=== PATIENT | female | born 1985 | race Caucasian/White ===

== ENCOUNTER → 2019-09-27 11:33 | Outpatient (BNVA) | payer OTHER, SELFPAY | PROVIDERS: Family Provider Nurse Practitioner Family; PCP Nurse Practitioner Family; Visit Provider Registered Nurse | DX: Z32.01 Encounter for pregnancy test, result positive (principal) | CPT/HCPCS: 81025 ==

== ENCOUNTER → 2020-07-19 13:08 | Outpatient (BNVA) | payer OTHER, SELFPAY | PROVIDERS: Family Provider Nurse Practitioner Family; PCP Nurse Practitioner Family; Visit Provider Registered Nurse | DX: R42 Dizziness and giddiness (principal) | CPT/HCPCS: 85025 ==

== ENCOUNTER → 2020-07-21 08:23 | Outpatient (BNVA) | payer OTHER, SELFPAY | PROVIDERS: Family Provider Nurse Practitioner Family; PCP Nurse Practitioner Family; Visit Provider Registered Nurse | DX: N92.0 Excessive and frequent menstruation with regular cycle (principal) | CPT/HCPCS: 85025 ==

== ENCOUNTER → 2023-01-03 09:37 | Outpatient (BNVA) | payer OTHER, SELFPAY | PROVIDERS: PCP Nurse Practitioner Family; Visit Provider Registered Nurse | DX: E04.1 Nontoxic single thyroid nodule (principal); Z13.6 Encounter for screening for cardiovascular disorders; E53.8 Deficiency of other specified B group vitamins | CPT/HCPCS: 80053; 80061; 82607; 84443; 85025 ==

== ENCOUNTER 2023-01-13 14:23 | Outpatient (CLI) | payer OTHER, SELFPAY ==
--- NOTE | 2023-01-13 14:45 | US_ITS ---
WS: [id number] Exam: US thyroid [id number] Date/Time of Exam: 01/13/2023 3:07 PM Reason For Exam: E04.1 - Nontoxic single thyroid nodule No previous exams for comparison. Evaluation of the right thyroid lobe shows a hypoechoic solid heterogeneous nodule measuring about 1 cm at the junction of the isthmus in the medial aspect of the right lobe. There may be some calcifica tion in this nodule. There is also a second isoechoic circumscribed nodule in the central aspect of t he right lobe that also measures about a centimeter at greatest diameter. Evaluation of the left thyroid lobe shows no indication of mass or nodule. The left lobe shows a norm al echogenicity. The remaining aspects of the thyroid isthmus appear normal. The right thyroid lobe m easures 1.5 x 1.65 x 4.6 cm. The left thyroid lobe measures 4 x 1.12 x 1.56 cm. The thyroid isthmus m easures about 3 mm at maximal thickness. US/US thyroid [id number] IMPRESSION: 1. 1 cm heterogeneous solid hypoechoic nodule noted at the junction of the thyr oid isthmus and the medial aspect of the right thyroid lobe. This is an indeter minate nodule and fine-needle aspiration biopsy would be recommended for follow -up. 2. A second 1 cm nodule seen in the central portion of the right thyroid lobe i s isoechoic and circumscribed and does not have suspicious appearance and could be followed up with repeat ultrasound in 6-8 months. 3. The left thyroid lobe appears normal.
== END 2023-01-13 14:24 | disposition home or self-care (01) ==
PROVIDERS: PCP Nurse Practitioner Family; Visit Provider Registered Nurse
DX: E04.2 Nontoxic multinodular goiter (principal)
CPT/HCPCS: 76536; 80053; 80061; 82607; 84443; 85025

== ENCOUNTER 2023-02-18 07:52 | Outpatient (CLI) | payer OTHER, SELFPAY ==
--- NOTE | 2023-02-18 08:45 | US_ITS ---
WS: [id number] ULTRASOUND-GUIDED RIGHT THYROID NODULE FNA HISTORY: E04.1 - Nontoxic single thyroid nodule, RIGHT isthmus nodule. Procedure, risks, and complications were explained to the patient. Consent has been obtained. Prior imaging studies are reviewed including 01/13/2023. The skin is cleansed with ChloraPrep and anesthetized with 1% buffered lidocaine. FNA performed with 25 gauge needles. medicine technologist is present to fix slides. IMPRESSION: Uncomplicated FNA of a RIGHT isthmus thyroid nodule. Final pathology results pending.
== END 2023-02-18 07:53 | disposition home or self-care (01) ==
PROVIDERS: PCP Nurse Practitioner Family; Visit Provider Registered Nurse
DX: E04.1 Nontoxic single thyroid nodule (principal)
CPT/HCPCS: 10005; 88173

== ENCOUNTER → 2023-12-17 08:49 | Outpatient (BNVA) | payer OTHER, SELFPAY | PROVIDERS: PCP Registered Nurse; Visit Provider Registered Nurse | DX: E53.8 Deficiency of other specified B group vitamins (principal); R42 Dizziness and giddiness | CPT/HCPCS: 80053; 82607; 85025 ==

== ENCOUNTER 2023-12-18 05:29 | Day surgery (SDC) | payer OTHER, SELFPAY ==
[2023-12-18] VITALS (12 sets, daily range): BP systolic 101–141; BP diastolic 58–72; PULSE 60–86; RESP 15–18; TEMP 36.3–37.5; O2SAT 95–100; BMI 25.9
[2023-12-18] MEDS: ondansetron 2 mg/ML SDV 2 mL 4 MG IVP (05:45)
[2023-12-18 06:00] LABS: Basophils % 0.4 %; Eosinophils # 0.2 10^3/uL (0.0-0.8); Eosinophils % 1.6 %; Lymphocytes % 19.6 %; Mean Corpuscular HGB Conc 34.4 g/dL (30-55); Mean Corpuscular Hemoglobin 30.9 pg (27-33); Mean Corpuscular Volume 90.1 fl (85-98); Mean Platelet Volume 9.5 fL (7.4-10.4); Monocytes # 0.5 10^3/uL (0.2-0.9); Monocytes % 4.9 %; Neutrophils # 7.27 10^3/uL (1.8-7.7); Neutrophils % 73.3 %; Nucleated Red Blood Cells % 0 %; Platelet Count 242 10^3/cmm (157-399); Red Blood Count 4.33 10^6/uL (3.85-5.65); Red Cell Distribution Width 12.7 % (12.1-15.1); White Blood Count 9.93 10^3/uL (3.29-11.43)
--- NOTE | 2023-12-18 06:00 | CTR_ITS ---
PROCEDURE INFORMATION: Exam: CT Abdomen And Pelvis Without Contrast Exam date and time: 12/18/2023 6:05 AM Age: 38 years old Clinical indication: Nausea and vomiting; Abdominal pain; Localized; Lower; Prior surgery; Surgery date: 6+ months; Surgery type: Hysterectomy TECHNIQUE: Imaging protocol: Computed tomography of the abdomen and pelvis without contrast. Radiation optimization: All CT scans at this facility use at least one of these dose optimization techniques: automated exposure control; mA and/or kV adjustment per patient size (includes targeted exams where dose is matched to clinical indication); or iterative reconstruction. COMPARISON: No relevant prior studies available. RADIATION DOSE METRICS: Total DLP (mGy-cm): 748.13 FINDINGS: Liver: Normal. No mass. Gallbladder and bile ducts: Normal. No calcified stones. No ductal dilation. Pancreas: Normal. No ductal dilation. Spleen: Small splenic cyst. Adrenal glands: Normal. No mass. Kidneys and ureters: Nonobstructing calculus lower pole right kidney. Stomach and bowel: Unremarkable. No obstruction. No mucosal thickening. Appendix: There is a small appendicolith at the appendiceal orifice with a 2nd appendicolith near the appendiceal tip. The appendix itself is slightly prominent and borderline in size at 8 mm. There is minimal periappendiceal stranding. Intraperitoneal space: Unremarkable. No free air. No significant fluid collection. Vasculature: Unremarkable. No abdominal aortic aneurysm. Lymph nodes: Unremarkable. No enlarged lymph nodes. Urinary bladder: Unremarkable as visualized. Reproductive: Unremarkable as visualized. Bones/joints: Unremarkable. No acute fracture. Soft tissues: Unremarkable. CT/CT abdomen pelvis wo con [id number] IMPRESSION: Appendiceal findings which could represent very early appendicitis. Correlate clinically.
--- NOTE | 2023-12-18 06:00 | W.ED.ABDPA2 ---
HPI - Abdominal Pain General: Chief Complaint: Abdominal Pain Stated Complaint: Abd pain Time Seen by Provider: 12/18/23 05:39 Source: patient Mode of arrival: ambulatory History of Present Illness: 38-year-old female presents to the emergency room with complaints of abdominal pain. She started having abdominal pain last evening had several episodes of diarrhea vomited around midnight and then again this morning after arriving here. No hematochezia melena hematemesis or coffee-ground emesis. She has not run a fever at all she denies any dysuria urgency or frequency. She has not previously had episodes like this. She has previously had a hysterectomy no other abdominal surgeries. No history of kidney stones. Pain is very vague she refers to it at and just to the left of the midline extending from the epigastric area all the way down to the suprapubic area. MD elicited complaint: abdominal pain Onset (ago): hour(s) Pain Consistency: constant Location: Diffuse Quality: cramping Exacerbating factors: nothing Relieving factors: nothing Associated Symptoms: Reports anorexia, change in stool character, GI cramping, diarrhea, nausea, poor appetite and vomiting; Denies belching, bloating, change in bowel habits, chills, coffee ground emesis, constipation, dyspepsia, dysuria, excessive flatus, fever(s), heartburn, hematochezia, hematuria, hematemesis, fecal incontinence, loose stools, melena and syncope Review of Systems Const: Denies: fever(s) or chills Card: Denies: chest pain or syncope Resp: Denies: dyspnea GI: Reports: nausea, vomiting, diarrhea, GI cramping and change in stool character; Denies: abdominal pain, hematemesis, coffee ground emesis, heartburn, constipation, bloating, belching, excessive flatus, fecal incontinence, change in bowel habits, hematochezia or melena : Denies: dysuria, urinary frequency, urinary urgency or hematuria Musc: Denies: neck pain or back pain Skin/Breast: Denies: rash PFSH ED PFSH: Medical History (Updated 12/18/23 @ 06:16 by Gary Singh DO) Right thyroid nodule Menorrhagia Surgical History (Updated 12/18/23 @ 06:16 by Gary Singh DO) History of partial hysterectomy Social History Smoking and tobacco/nicotine status: never used tobacco/nicotine Alcohol intake: never Substance/Drug Use: never Adopted: No Caregiver/support person: No Lives independently: No Household members: spouse and children Housing: House Marital status: Sexually active: Yes Do you think of yourself as: Straight/Heterosexual Current gender identity: Female Physical Exam Const: GENERAL APPEARANCE: cooperative and comfortable ORIENTATION/CONSCIOUSNESS: Yes awake, Yes oriented to person, Yes oriented to place and Yes oriented to time HENMT: COMMON NORMALS: normocephalic, atraumatic and hearing grossly normal bilaterally HEAD & SCALP: normocephalic and atraumatic Resp: COMMON NORMALS: normal respiratory effort, No retractions, No use of accessory muscles and clear to auscultation bilaterally AUSCULTATION: clear to auscultation bilaterally Cardio: COMMON NORMALS: regular rate, regular rhythm and No murmurs present (Cardio) RATE: regular rate RHYTHM: regular rhythm GI: COMMON NORMALS: No hepatosplenomegaly present AUSCULTATION: Yes normoactive bowel sounds PALPATION: Yes Tenderness to palpation present (GI) (Diffuse but most prominent at RLQ), Yes Guarding due to palpation present (GI) in the RLQ (At McBurney's point) and Yes No hepatosplenomegaly present Extremity: COMMON NORMALS: normal to inspection, capillary refill normal, no clubbing, cyanosis or edema, no calf tenderness and no pedal edema Neuro: SENSORIUM/ORIENTATION: Yes oriented to person, Yes oriented to place and Yes oriented to time Skin: COMMON NORMALS: no rashes or lesions noted GENERAL SKIN EXAM: no rashes or lesions noted Course Vital Signs: Vital signs: Vital Signs Temperature 98.2 F 12/18/23 05:31 Pulse Rate 69 12/18/23 06:30 Respiratory Rate 16 12/18/23 06:30 Blood Pressure 122/72 12/18/23 06:30 Pulse Oximetry 100 12/18/23 06:30 Oxygen Delivery Me thod Room Air 12/18/23 05:31 MDM - Abdominal Pain Medical Decision Making Initially pain was much more diffuse on repeat exam focal to the right lower quadrant patient now walking hunched over holding her right lower quadrant. CT shows questionable early appendicitis white count is normal. Discussed with Dr. Campoverde on-call for surgery. He will admit patient given IV fluids Zosyn. She last ate last night around 6:00 will keep her n.p.o. Differential Diagnosis Likely acute appendicitis Medical Records I reviewed the patient's medical records. Lab Data I reviewed the patient's lab results. 12/18/23 05:39 12/18/23 05:39 Labs/Radiology: Radiology Impressions Abdomen/Pelvis CT 12/18/23 06:00 IMPRESSION: Appendiceal findings which could represent very early appendicitis. Correlate clinically. Laboratory Results WBC 9.93 10^3/uL (3.29-11.43) 12/18/23 05:39 RBC 4.33 10^6/uL (3.85-5.65) 12/18/23 05:39 Hgb 13.40 g/dL (11.27-16.99) 12/18/23 05:39 Hct 39.0 % (36-47) 12/18/23 05:39 MCV 90.1 fl (85-98) 12/18/23 05:39 MCH 30.9 pg (27-33) 12/18/23 05:39 MCHC 34.4 g/dL (30-55) 12/18/23 05:39 RDW 12.7 % (12.1-15.1) 12/18/23 05:39 Plt Count 242 10^3/cmm (157-399) 12/18/23 05:39 MPV 9.5 fL (7.4-10.4) 12/18/23 05:39 Neut % (Auto) 73.3 % 12/18/23 05:39 Lymph % (Auto) 19.6 % 12/18/23 05:39 [place] % (Auto) 4.9 % 12/18/23 05:39 Eos % (Auto) 1.6 % 12/18/23 05:39 Baso % (Auto) 0.4 % 12/18/23 05:39 Neut # (Auto) 7.27 10^3/uL (1.8-7.7) 12/18/23 05:39 Lymph # (Auto) 2.0 10^3/uL (0.8-4.8) 12/18/23 05:39 [place] # (Auto) 0.5 10^3/uL (0.2-0.9) 12/18/23 05:39 Eos # (Auto) 0.2 10^3/uL (0.0-0.8) 12/18/23 05:39 Baso # (Auto) 0.0 10^3/uL (0.0-0.1) 12/18/23 05:39 Nucleated RBC % (auto) 0 % 12/18/23 05:39 Nucleated RBCs # 0.0 /100WBC 12/18/23 05:39 Sodium 138 mmol/L (136-145) 12/18/23 05:39 Potassium 4.2 mmol/L (3.5-5.1) 12/18/23 05:39 Chloride 101 mmol/L (98-107) 12/18/23 05:39 Carbon Dioxide 22 mmol/L (22-29) 12/18/23 05:39 Anion Gap 19.2 (5-19) H 12/18/23 05:39 BUN 7 mg/dL (6-20) 12/18/23 05:39 Creatinine 0.5 mg/dL (0.5-0.9) 12/18/23 05:39 GFR Calculation 137.4 mL/min (90-130) H 12/18/23 05:39 Glucose 114 mg/dL (65-115) 12/18/23 05:39 Calculated Osmolality 285 mOsm/kg (285-295) 12/18/23 05:39 Calcium 9.4 mg/dL (8.5-10.5) 12/18/23 05:39 Total Bilirubin 0.4 mg/dL (0.15-1.2) 12/18/23 05:39 AST 10 U/L (0-32) 12/18/23 05:39 ALT 8 U/L (0-33) 12/18/23 05:39 Alkaline Phosphatase 80 U/L (35-105) 12/18/23 05:39 Total Protein 7.2 g/dL (6.6-8.7) 12/18/23 05:39 Albumin 4.6 g/dL (3.5-5.2) 12/18/23 05:39 Globulin 2.6 g/dL (1.3-4.6) 12/18/23 05:39 Urine Color Yellow (Yellow) 06/20/24 05:31 Urine Appearance Clear (CLEAR) 12/18/23 05:31 Urine pH 7 (5-7) 12/18/23 05:31 Ur Specific [place] 1.010 (1.005-1.030) 12/18/23 05:31 Urine Protein Neg (Negative) 12/18/23 05:31 Urine Glucose (UA) Norm (Normal) 12/18/23 05:31 Urine Ketones Negative (Negative) 12/18/23 05:31 Urine Blood Neg (Negative) 12/18/23 05:31 Urine Nitrate Negative (Negative) 12/18/23 05:31 Urine Bilirubin Neg (Negative) 12/18/23 05:31 Urine Urobilinogen Neg mg/dL (Negative) 12/18/23 05:31 Ur Leukocyte Esterase Negative (Negative) 12/18/23 05:31 All radiology interpretation(s) finalized by discharge Discharge Plan Discharge Condition: Stable Prescriptions: No Action Vitamin B-12 50 mcg Tablet 50 mcg PO DAILY ferrous sulfate 325 mg (65 mg iron) Tablet 325 mg PO DAILY PRN (Reason: iron deficiency) magnesium 250 mg Tablet 250 mg PO DAILY Claritin 10 mg Tablet 10 mg PO DAILY turmeric 400 mg Capsule 400 mg PO DAILY Referrals: Demetrio Hastings, CARD CLEANER [Primary Care Provider] - Coding Level of Care Code ED Cut Off Saw Operator for Aly Sequeira
[2023-12-18] MEDS: sodium chloride 0.9% 1,000 ML 999 ML IV (06:02)
[2023-12-18 06:15] LABS: Alanine Aminotransferase 8 U/L (0-33); Albumin Level 4.6 g/dL (3.5-5.2); Alkaline Phosphatase 80 U/L (35-105); Anion Gap 19.2 (5-19); Aspartate Amino Transferase 10 U/L (0-32); Blood Urea Nitrogen 7 mg/dL (6-20); Calcium 9.4 mg/dL (8.5-10.5); Carbon Dioxide 22 mmol/L (22-29); Chloride 101 mmol/L (98-107); Creatinine Clr Calc Pharmacy 204.0311; Globulin 2.6 g/dL (1.3-4.6); Glomerular Filtration Rate 137.4 mL/min (90-130); Glucose 114 mg/dL (65-115); Osmolality Calculated 285 mOsm/kg (285-295); Potassium 4.2 mmol/L (3.5-5.1); Sodium 138 mmol/L (136-145); Total Bilirubin 0.4 mg/dL (0.15-1.2); Total Protein 7.2 g/dL (6.6-8.7)
[2023-12-18 06:24] LABS: Add Urine Microscopic? NO; Charge for UA Resulting for Rev
[2023-12-18 06:33] LABS: Bilirubin Urine Neg (Negative); Blood Urine Neg (Negative); Glucose Urine UA Norm (Normal); Ketones Urine Negative (Negative); Leukocyte Esterase Urine Negative (Negative); Nitrate Urine Negative (Negative); Protein Urine Neg (Negative); Urine Appearance Clear (CLEAR); Urine Color Yellow (Yellow); Urobilinogen Urine Neg (Negative); pH Urine 7 (5-7)
[2023-12-18] MEDS: morphine 4 mg/mL SDV 1 mL IVP (07:51)
--- NOTE | 2023-12-18 08:46 | PC.NURSE ---
ANTIBIOTIC SENT WITH SURGERY NURSE. NURSE STATED SHE WOULD ADMINISTER IT THERE.
--- NOTE | 2023-12-18 09:02 | P.ANESASSM_ITS ---
Pre-Anesthetic Assessment Height/Weight: Height 1.91 m Weight 93.894 kg Temp Pulse Resp BP Pulse Ox O2 Del Method 99.5 F 77 17 118/65 99 Room Air 12/18/23 09:01 12/18/23 09:01 12/18/23 09:01 12/18/23 09:01 12/18/23 09:01 12/18/23 09:01 Operation Date: 12/18/23 11:25 Proposed Procedures p Laparoscopic Appendectomy(Not Applicable) - Cody Campoverde DO Familial anesthetic complications: Remote Family history of Malignant Hyperthermia Was Beta Leoncio taken within 24 hours: N/A Was Clonidine taken within 24 hours: N/A Last intake: > 8 hrs for solids > 2 hrs for clear liquids Social No alcohol and No tobacco Exam alert, oriented x 3, clear to auscultation bilaterally and regular rate & rhythm Airway Mallampati: Class I Dentition: full Anesthetic Plan ASA status: 1 Anesthesia: General Risk of > 500 ml blood loss (7ml/kg in children): No Medications/Allergies Home Medications Medication Instructions Recorded Confirmed Last Taken Type cyanocobalamin (vitamin B-12) 50 50 mcg PO DAILY 12/18/23 12/18/23 12/17/23 History mcg tablet (Vitamin B-12) ferrous sulfate 325 mg (65 mg 325 mg PO DAILY PRN iron deficiency 12/18/23 12/18/23 Unknown History iron) tablet loratadine 10 mg tablet (Claritin) 10 mg PO DAILY 12/18/23 12/18/23 12/17/23 History magnesium 250 mg tablet 250 mg PO DAILY 12/18/23 12/18/23 12/17/23 History turmeric 400 mg capsule 400 mg PO DAILY 12/18/23 12/18/23 12/17/23 History Allergies Allergy/AdvReac Type Severity Reaction Status Date / Time No Known Allergies Allergy Verified 12/18/23 08:54 [facility] Anesthesia Medical History (Updated 12/18/23 @ 06:16 by Gary Singh DO) Right thyroid nodule Menorrhagia Surgical History (Updated 12/18/23 @ 06:16 by Gary Singh DO) History of partial hysterectomy Social History Smoking and tobacco/nicotine status: never used tobacco/nicotine Alcohol intake: never Substance/Drug Use: never Adopted: No Caregiver/support person: No Lives independently: No Household members: spouse and children Housing: House Marital status: Sexually active: Yes Do you think of yourself as: Straight/Heterosexual Current gender identity: Female Data Anesthesia 12/18/23 05:39 12/18/23 05:39 Short CBC 12/18/23 Range/Units 05:39 WBC 9.93 (3.29-11.43) 10^3/uL Hgb 13.40 (11.27-16.99) g/dL Hct 39.0 (36-47) % MCV 90.1 (85-98) fl Plt Count 242 (157-399) 10^3/cmm Neut % (Auto) 73.3 % Neut # (Auto) 7.27 (1.8-7.7) 10^3/uL BMP 12/18/23 05:39 Sodium 138 Potassium 4.2 Chloride 101 Carbon Dioxide 22 BUN 7 Creatinine 0.5 Glucose 114 Calcium 9.4 Liver Function 12/18/23 Range/Units 05:39 Total Bilirubin 0.4 (0.15-1.2) mg/dL AST 10 (0-32) U/L ALT 8 (0-33) U/L Alkaline Phosphatase 80 (35-105) U/L Albumin 4.6 (3.5-5.2) g/dL Urine 12/18/23 Range/Units 05:31 Urine Color Yellow (Yellow) Urine Appearance Clear (CLEAR) Urine pH 7 (5-7) Ur Specific [place] 1.010 (1.005-1.030) Urine Protein Neg (Negative) Urine Glucose (UA) Norm (Normal) Urine Ketones Negative (Negative) Urine Nitrate Negative (Negative) Urine Bilirubin Neg (Negative) Ur Leukocyte Esterase Negative (Negative) Cardiac Studies: 2 No Data to Display
[2023-12-18] MEDS: sodium chloride 0.9% 1,000 ML 30 ML IV (09:10)
--- NOTE | 2023-12-18 09:11 | P.HP_ITS ---
Providers/Chief Complaint 2 Admitting Physician: Cody Campoverde DO Primary Care Provider: MELISSA Nolan Chief Complaint: Abd pain History of Present Illness Missy Archer is a 38 year old female who presents to the hospital with abdominal pain. She reports that she began having right lower quadrant abdominal pain at midnight last night. That pain is sharp severe and does not radiate. Palpation makes pain worse. Nothing makes pain better. She does endorse nausea and emesis but denies any hematemesis. Her last bowel movement was this morning and was within normal limits. She has not had anything to eat since last night. CT of the abdomen pelvis shows early acute appendicitis with an appendicolith. Review of Systems 2 General: Reports: 10 or more systems reviewed and unremarkable except in HPI and below Medications/Allergies Home Medications Medication Instructions Recorded Confirmed Last Taken Type cyanocobalamin (vitamin B-12) 50 50 mcg PO DAILY 12/18/23 12/18/23 12/17/23 History mcg tablet (Vitamin B-12) ferrous sulfate 325 mg (65 mg 325 mg PO DAILY PRN iron deficiency 12/18/23 12/18/23 Unknown History iron) tablet loratadine 10 mg tablet (Claritin) 10 mg PO DAILY 12/18/23 12/18/23 12/17/23 History magnesium 250 mg tablet 250 mg PO DAILY 12/18/23 12/18/23 12/17/23 History turmeric 400 mg capsule 400 mg PO DAILY 12/18/23 12/18/23 12/17/23 History Allergies Allergy/AdvReac Type Severity Reaction Status Date / Time No Known Allergies Allergy Verified 12/18/23 08:54 PFSH Acute 2 PFSH: Medical History Right thyroid nodule Menorrhagia Surgical History History of partial hysterectomy Social History Smoking and tobacco/nicotine status: never used tobacco/nicotine Alcohol intake: never Substance/Drug Use: never Adopted: No Caregiver/support person: No Lives independently: No Household members: spouse and children Housing: House Marital status: Sexually active: Yes Do you think of yourself as: Straight/Heterosexual Current gender identity: Female Vitals/I&O/Wt Last Vital Signs Temp 99.5 F 12/18/23 09:01 Pulse 77 12/18/23 09:01 Resp 17 12/18/23 09:01 BP 118/65 12/18/23 09:01 Pulse Ox 99 12/18/23 09:01 O2 Del Method Room Air 12/18/23 09:01 Weight last 48 hrs Weight 207 lb Physical Exam 2 Narrative: General : Patient is well developed , no acute distress, oriented x3 Head : Normal cephalic, a-traumatic. Ears : Pinnae and external canal are normal. Hearing is normal. Eyes : PERRLA, Sclera and injection are normal. No conjunctival discharge. Nose : Mucous membranes are without erythema. Throat : buccal mucosa is normal, gums are without significant recession or hypertrophy. Lungs : Equal chest rise bilaterally, no use of accessory muscles, trachea is midline. Cor : Rate and rhythm are normal. Abdomen : Soft, ND, tender over McBurney's point, negative Rovsing's no g/r/m Extremities : No edema, no cyanosis or clubbing, dorsalis pedis pulses are present bilaterally, non-tender to palpation of calves. Upper extremities are normal bilaterally. Back : non-tender to palpation, no CVA tenderness. Neuro : CN II - XII intact, Upper and lower extremities have equal and full strength Data 12/18/23 05:39 12/18/23 05:39 A&P Assessment and plan (1) Acute appendicitis: Plan Laparoscopic Appendectomy The risks and benefits of the procedure, including but not limited to, bleeding, infection, scar, numbness, pain, damage to surrounding structures, conversion to an open procedure, were explained to the patient. He is understanding of the risks and wishes to proceed. Attestations 2 Medical Necessity Statement*: Depending on the severity of her appendicitis, she may be discharged home from the operating room. If suppurative or perforated, she will require at least 1 night in the hospital after appendectomy. Coding Level of Care Code Acute Code for [facility] Diagnoses Acute appendicitis K35.80
[2023-12-18] MEDS: piperacillin-tazobactam 3.375 GM in sodium chloride 0.9% (plus) 50 ML IV (09:12)
[2023-12-18] MEDS: fentaNYL 50 mcg/mL INJ 2mL IVP (11:18)
[2023-12-18] MEDS: HYDROcodone-acetaminophen 7.5-325 mg Tablet 1 TAB PO (12:20)
--- NOTE | 2023-12-18 12:24 | P.OP_ITS ---
Operative Report Date of procedure: December 18, 2023 Pre-op diagnosis: Acute appendicitis Post-op diagnosis: same Procedure done: Laparoscopic appendectomy Implants: None Specimens removed/disposition: Appendix Surgeon: Cody Campoverde DO Anesthesia: General and Local Estimated blood loss (mL): 5 Complications: None apparent Brief History: Pleasant 38-year-old female presented to hospital with abdominal pain. She is diagnosed with acute appendicitis. Laparoscopic appendectomy was indicated. The risk and benefits were explained and documented. Procedure: Patient was wheeled into the operative room and placed on the OR table in a supine position. Abdomen was inspected prepped and draped in usual sterile fashion. Time-out was performed and all present were in agreement. A 15 blade scalp was used to make a stab incision in the left upper quadrant and intra- abdominal insufflation was achieved using a Veress needle. After localizing the tissue incisions were made and a 12 millimeter trocar was placed into the umbilicus as well as a 5mm in the right lower quadrant and a 5 mm in the left lower quadrant . The appendix was identified and was mildly inflamed. I used the Voyant to ligate the mesoappendix at the base. I then used 2 PDS endo-loops to snare the base of the appendix. I then used the Voyant to ligate the appendix distally. The appendix was removed from the abdomen using an Endo- Catch bag through the umbilical incision. I examined the abdomen and no further pathology was identified. Hemostasis was noted. I then closed the umbilical site with a Jose-Mat and 0 Vicryl suture in a figure of 8 fashion. All ports removed. Skin was washed and dried. Incisions were closed with 4 O Vicryl in a subcuticular interrupted fashion. Skin glue was applied. Patient tolerated the procedure well.
--- NOTE | 2023-12-18 12:45 | ANE.PACU2 ---
Inpatient post-anesthesia follow up: Airway intact: Yes Vital signs: Temperature 98.4 F Pulse Rate 68 Respiratory Rate 16 Blood Pressure 110/64 Pulse Oximetry 98 Oxygen Delivery Me thod Room Air Oxygen Flow Rate 6 Fraction of Inspir ed Oxygen Hydration adequate: Yes Nausea and vomiting: No Pain level: 1 Mental status: Baseline
== END 2023-12-18 12:45 | disposition home or self-care (01) ==
LOC: ER 06:01 → OR 08:43 → MEDSURG 11:17 → OR 11:52
PROVIDERS: Emergency Provider Family Medicine; PCP Registered Nurse; Visit Provider Surgery
PROC: 0DTJ4ZZ Resection of Appendix, Percutaneous Endoscopic Approach (ICD-10-PCS; CPT 44970; principal; 2023-12-18 11:25)
DX: K35.80 Unspecified acute appendicitis (principal)
CPT/HCPCS: 44970; 74176; 80053; 81003; 85025; 88304; J2250; J2270; J2405; J2543; J2704; J2710; J3010; J3490; J7030

== ENCOUNTER → 2024-09-16 08:15 | Outpatient (BNVA) | payer OTHER, SELFPAY | PROVIDERS: PCP Registered Nurse; Visit Provider Registered Nurse | DX: R51.9 Headache, unspecified (principal) | CPT/HCPCS: 80053; 82607; 84443; 85025 ==

== ENCOUNTER 2024-10-05 09:47 | Outpatient (CLI) | payer OTHER, SELFPAY ==
--- NOTE | 2024-10-05 10:00 | CT_ITS ---
WS: [id number] CT HEAD TECHNIQUE: Noncontrast CT of the head obtained from the skullbase to the vertex. CLINICAL INFORMATION: R51.9 - Headache, unspecified COMPARISON: None. DLP: 1027.[address] scans at [facility] use at least one of these dose optimization techniques: automated exposure control; mA and/or kV adjustment per patient size (includes targeted exams where dose is matched to clinical indication); or iterative reconstruction. FINDINGS: No evidence of intracranial hemorrhage or mass effect. Ventricular system and basal cisterns are patent. No extra-axial fluid collections. No evidence of mass or mass effect. Normal hayes-white differentiation. No hydrocephalus. Paranasal sinuses and mastoid air cells are well aerated. .Normal visualized soft tissues. CT/CT head wo con* [id number] IMPRESSION: 1. No evidence of intracranial hemorrhage or mass effect. 2. Normal hayes-white differentiation. 3. No acute intracranial findings.
== END 2024-10-05 09:48 | disposition home or self-care (01) ==
PROVIDERS: PCP Registered Nurse; Visit Provider Registered Nurse
DX: R51.9 Headache, unspecified (principal); R41.3 Other amnesia
CPT/HCPCS: 70450

== ENCOUNTER → 2025-02-25 07:48 | Outpatient (BNVA) | payer OTHER, SELFPAY | PROVIDERS: PCP Registered Nurse; Visit Provider Registered Nurse | DX: Z90.711 Acquired absence of uterus with remaining cervical stump (principal); G93.32 Myalgic encephalomyelitis/chronic fatigue syndrome; Z71.89 Other specified counseling | CPT/HCPCS: 82607; 82670; 83001; 84481; 86376 ==